=== PATIENT | female | born 1965 | race Caucasian/White ===

== ENCOUNTER 2020-07-18 13:43 | Emergency (ER) | payer BC, OTHER ==
[~2020-07-18] VITALS: Ht 157.5 cm; Wt 81.6 kg
--- NOTE | 2020-07-18 13:52 | NUR ---
Dr Vega at bedside for MSE.
--- NOTE | 2020-07-18 14:08 | NUR ---
[facility] tech is at bedside.
[2020-07-18] MEDS ORDERED: PRED50TA PO (15:20)
[2020-07-18] MEDS ORDERED: HYDR-3972 PO (15:20)
[2020-07-18] MEDS ORDERED: IBUP-1957 PO (15:20)
[2020-07-18 15:37] VITALS: BP 120/82
--- NOTE | 2020-07-18 15:37 | NUR ---
Patient discharged to home in stable condition. Written and verbal after care instructions given. Patient verbalizes understanding of instructions. Stressed follow up or return to ER for worsening s/s.
== END 2020-07-18 15:38 | disposition home or self-care (01) ==
LOC: ER 13:43
DX: M65.272 Calcific tendinitis, left ankle and foot (principal); E05.00 Thyrotoxicosis with diffuse goiter without thyrotoxic crisis or storm; Z79.52 Long term (current) use of systemic steroids; I10 Essential (primary) hypertension; Z72.0 Tobacco use
CPT/HCPCS: 76881; A4663

== ENCOUNTER 2020-08-01 11:11 | Emergency (ER) | payer BC, OTHER ==
[~2020-08-01] VITALS: Ht 157.5 cm; Wt 81.6 kg
[~2020-08-01 11:11] MED LIST: IBUP-1957 PO; PRED50TA PO
[2020-08-01] MEDS ORDERED: OXYCODONE/APAP 5-325 MG TABLET PO ONE (11:30)
[2020-08-01] MEDS ORDERED: IBUPROFEN 800 MG TABLET PO ONE (11:30)
--- NOTE | 2020-08-01 11:30 | NUR ---
PATIENT WAS SEEN BY DR YUSUF. MEDS GIVEN ORDERED.
[2020-08-01] MEDS ORDERED: IBUPROFEN 800 MG TABLET ONE (11:39)
[2020-08-01] MEDS ORDERED: OXYCODONE/APAP 5-325 MG TABLET ONE (11:39)
--- NOTE | 2020-08-01 12:26 | NUR ---
PATIENT STATES PAIN HAS DIMINISHED
[2020-08-01] MEDS ORDERED: NALO4SPR NS (13:13)
[2020-08-01] MEDS ORDERED: OXYC1TAB12 PO (13:13)
[2020-08-01] MEDS ORDERED: IBUP-1957 PO (13:13)
--- NOTE | 2020-08-01 13:24 | NUR ---
DC, RX (INCLUDING ALL NARCOTIC PRECAUTIONS) AND FOLLOW UP INSRUCTIONS GIVEN AND EXPLAINED TO PATIENT WHO STATES SHE UNDERSTANDS ALL INSTRUCTIONS
== END 2020-08-01 13:26 | disposition home or self-care (01) ==
LOC: ER 11:11
DX: M77.32 Calcaneal spur, left foot (principal); D17.79 Benign lipomatous neoplasm of other sites; E05.00 Thyrotoxicosis with diffuse goiter without thyrotoxic crisis or storm; I10 Essential (primary) hypertension; Z72.0 Tobacco use
CPT/HCPCS: 73630; 76881; A4663

== ENCOUNTER 2020-08-27 08:27 | Inpatient (IN) | payer BC, OTHER ==
[~2020-08-27] VITALS: Ht 157.5 cm; Wt 90.3 kg
[~2020-08-27 08:27] MED LIST changes: +NALO4SPR NS; +OXYC1TAB12 PO
[2020-08-27] MEDS ORDERED: LORAZEPAM 1 MG TABLET ONE (08:54)
[2020-08-27] MEDS ORDERED: LORAZEPAM 0.5 MG TABLET PO ONE (09:00)
[2020-08-27 09:16] LABS: BASOPHILS # (AUTO) 0.1 K/uL (0.0-8.0); BASOPHILS % (AUTO) 0.9 % (0.0-2.0); EOSINOPHILS # (AUTO) 0.2 K/uL (0.0-0.7); EOSINOPHILS % (AUTO) 2.9 % (0.0-7.0); HEMATOCRIT 41.6 % (31.2-41.9); HEMOGLOBIN 14.6 g/dL (10.9-14.3); LYMPHOCYTES % (AUTO) 37.2 % (20.5-51.5); MEAN CORPUSCULAR HGB CONC 35 g/dL (32.3-35.6); MEAN CORPUSCULAR VOLUME 99.4 fL (75.5-95.3); MONOCYTES # (AUTO) 0.9 K/uL (2.0-10.0); MONOCYTES % (AUTO) 10.6 % (0.0-11.0); NEUTROPHILS % (AUTO) 48.4 % (38.5-71.5); PLATELET COUNT (AUTO) 229 K/uL (179-408); RED BLOOD CELL COUNT(AUTO) 4.18 MIL/uL (3.63-4.92); WHITE BLOOD COUNT (AUTO) 8.2 K/uL (3.8-11.8)
[2020-08-27 09:27] LABS: CREATININE 0.7 mg/dL (0.6-1.3)
[2020-08-27 09:34] LABS: POTASSIUM 3.8 mmol/L (3.5-5.1)
[2020-08-27] MEDS ORDERED: CLOP75TA15 PO (10:16)
[2020-08-27] MEDS ORDERED: GABA300C PO (10:16)
[2020-08-27] MEDS ORDERED: ALPR0.5T8 PO (10:16)
[2020-08-27] MEDS ORDERED: HYDROCHLOROTHIAZIDE (10:29)
[2020-08-27] MEDS ORDERED: HIGH CHOLESTEROL MED (10:29)
[2020-08-27] MEDS ORDERED: SYNTHROID (10:29)
[2020-08-27] MEDS ORDERED: BP MEDICATION (10:29)
[2020-08-27] MEDS ORDERED: ATOR40TA PO (10:35)
[2020-08-27] MEDS ORDERED: HYDR25TA4 PO (10:35)
[2020-08-27] MEDS ORDERED: VALS160T2 PO (10:35)
[2020-08-27] MEDS ORDERED: LEVO50TA8 PO (10:35)
[2020-08-27] MEDS ORDERED: OXYCODONE/APAP 5-325 MG TABLET PO PRN (11:15)
[2020-08-27] MEDS ORDERED: ALPRAZOLAM 0.5 MG TABLET PO PRN (11:15)
[2020-08-27 11:16] VITALS: BP 133/79
[2020-08-27] MEDS: LORAZEPAM 2 MG/1 ML VIAL IV PRN ×2 (12:22→20:00)
[2020-08-27] MEDS: OXYCODONE/APAP 5-325 MG TABLET PO PRN ×2 (12:22→17:44)
[2020-08-27] MEDS ORDERED: NICO-670 TD (13:26)
[2020-08-27 15:07] VITALS: BP 113/56
[2020-08-27 17:05] LABS: BILIRUBIN,DIRECT 0.1 mg/dL (0.0-0.2); BILIRUBIN,TOTAL 0.4 mg/dL (0.2-1.0); TOTAL PROTEIN, SERUM 7.4 g/dL (6.4-8.2)
[2020-08-27] MEDS: NICOTINE 14 MG/24HR PATCH TD SCH (17:43)
[2020-08-27] MEDS: GABAPENTIN 300 MG CAPSULE PO SCH (17:44)
[2020-08-27] MEDS: ATORVASTATIN 40 MG TABLET PO SCH ×3 (20:01→20:40)
[2020-08-27 20:18] VITALS: BP 131/65
[2020-08-28] VITALS (7 sets, daily range): BP systolic 92–151; BP diastolic 32–79
[2020-08-28] MEDS: LORAZEPAM 2 MG/1 ML VIAL IV PRN ×3 (04:32→18:40)
[2020-08-28] MEDS: OXYCODONE/APAP 5-325 MG TABLET PO PRN ×3 (04:33→20:50)
[2020-08-28] MEDS: GABAPENTIN 300 MG CAPSULE PO SCH ×3 (08:13→17:14)
[2020-08-28] MEDS: LEVOTHYROXINE SODIUM 50 MCG TABLET PO SCH (08:21)
[2020-08-28] MEDS: NICOTINE 14 MG/24HR PATCH TD SCH (08:22)
[2020-08-28] MEDS ORDERED: CLOPIDOGREL 75 MG TABLET PO SCH (09:00)
[2020-08-28] MEDS ORDERED: HYDROCHLOROTHIAZIDE 25 MG TABLET PO SCH (09:00)
[2020-08-28] MEDS ORDERED: VALSARTAN 160 MG TABLET PO SCH (09:00)
[2020-08-28] MEDS: FAMOTIDINE 20 MG TABLET PO SCH ×2 (11:51→20:50)
[2020-08-28] MEDS: METOPROLOL SUCCINATE XL 50 MG TAB.SR.24H PO SCH (11:52)
[2020-08-28] MEDS ORDERED: BENZOCAINE/MENTH/CETYLPYRD LOZENGE MM PRN (12:15)
[2020-08-28] MEDS ORDERED: RIVAROXABAN 10 MG TABLET PO SCH (18:00)
[2020-08-28] MEDS: ATORVASTATIN 40 MG TABLET PO SCH (20:50)
[2020-08-29] VITALS: BP 105/54
[2020-08-29] MEDS: LORAZEPAM 2 MG/1 ML VIAL IV PRN ×2 (00:47→08:24)
[2020-08-29 04:00] VITALS: BP 108/47
[2020-08-29] MEDS: LEVOTHYROXINE SODIUM 50 MCG TABLET PO SCH (06:02)
[2020-08-29] MEDS: OXYCODONE/APAP 5-325 MG TABLET PO PRN (06:05)
[2020-08-29] MEDS: NICOTINE 14 MG/24HR PATCH TD SCH (08:22)
[2020-08-29] MEDS: FAMOTIDINE 20 MG TABLET PO SCH (08:23)
[2020-08-29] MEDS: METOPROLOL SUCCINATE XL 50 MG TAB.SR.24H PO SCH (08:23)
[2020-08-29] MEDS ORDERED: ASPIRIN 81 MG TAB.CHEW PO SCH (09:00)
[2020-08-29] MEDS: GABAPENTIN 300 MG CAPSULE PO SCH (09:00)
[2020-08-29] MEDS ORDERED: MULTIVITAMINS,THERAPEUTIC TABLET PO SCH (09:00)
[2020-08-29] MEDS ORDERED: THIAMINE HCL 100 MG TABLET PO SCH (09:00)
[2020-08-29] MEDS ORDERED: FOLIC ACID 1 MG TABLET PO SCH (09:00)
[2020-08-29] MEDS ORDERED: VALSARTAN 160 MG TABLET PO SCH (09:00)
[2020-08-29] MEDS ORDERED: VALSARTAN 80 MG TABLET PO SCH (09:00)
[2020-08-29] MEDS ORDERED: VALS80TA2 PO (11:19)
[2020-08-29] MEDS ORDERED: METO-357 PO (11:19)
[2020-08-29] MEDS ORDERED: GABA300C PO (11:19)
[2020-08-29] MEDS ORDERED: FOLI1TAB94 PO (11:19)
[2020-08-29] MEDS ORDERED: HYDR-3980 PO (11:19)
[2020-08-29] MEDS ORDERED: THIA100T13 PO (11:19)
[2020-08-29] MEDS ORDERED: MULT-24 PO (11:19)
[2020-08-29] MEDS ORDERED: RIVA10TA PO (11:19)
[2020-08-29] MEDS ORDERED: ALPR0.5T8 PO (11:19)
[2020-08-29] MEDS ORDERED: FAMO20TA8 PO (11:19)
[2020-08-29] MEDS ORDERED: ASPI81TA31 PO (11:19)
[2020-08-29] MEDS ORDERED: NICO-671 TD (11:19)
[2020-08-29 11:32] VITALS: BP 145/59
== END 2020-08-29 13:10 | disposition home or self-care (01) | DRG 880 ==
LOC: ER 08:28 → TELE3 10:17
PROVIDERS: ADMIT Internal Medicine; ATTEND Internal Medicine
DX: F41.9 Anxiety disorder, unspecified (principal); F10.239 Alcohol dependence with withdrawal, unspecified; I25.2 Old myocardial infarction; Z95.5 Presence of coronary angioplasty implant and graft; E05.00 Thyrotoxicosis with diffuse goiter without thyrotoxic crisis or storm; F17.210 Nicotine dependence, cigarettes, uncomplicated; F32.9 Major depressive disorder, single episode, unspecified; G89.29 Other chronic pain; I10 Essential (primary) hypertension; I25.10 Atherosclerotic heart disease of native coronary artery without angina pectoris; M19.90 Unspecified osteoarthritis, unspecified site; I48.0 Paroxysmal atrial fibrillation; G62.9 Polyneuropathy, unspecified; Z90.49 Acquired absence of other specified parts of digestive tract; E66.9 Obesity, unspecified; Z68.36 Body mass index [BMI] 36.0-36.9, adult; Y90.9 Presence of alcohol in blood, level not specified; Z20.822 Contact with and (suspected) exposure to COVID-19
CPT/HCPCS: 36415; 70030-TC; 71045; 83690; 85025; A4663; G0378; J2060

== ENCOUNTER 2020-09-08 14:03 | Inpatient (IN) | payer BC, OTHER ==
[~2020-09-08] VITALS: Ht 157.5 cm; Wt 88.0 kg
[~2020-09-08 14:03] MED LIST changes: +ALPR0.5T8 PO; +ASPI81TA31 PO; +ATOR40TA PO; +CLOP75TA15 PO; +FAMO20TA8 PO; +FOLI1TAB94 PO; +GABA300C PO; +HYDR25TA4 PO; +LEVO50TA8 PO; +METO-357 PO; +MULT-24 PO; -NALO4SPR NS; +NICO-670 TD; +NICO-671 TD; -PRED50TA PO; +RIVA10TA PO; +THIA100T13 PO; +VALS160T2 PO; +VALS80TA2 PO
--- NOTE | 2020-09-08 14:17 | NUR ---
DR Sanchez at the bedside for MSE.
[2020-09-08] MEDS ORDERED: HYDROCODONE/APAP 5-325MG TABLET ONE (15:30)
[2020-09-08] MEDS ORDERED: HYDROCODONE/APAP 5-325MG TABLET PO ONE (15:30)
[2020-09-08] MEDS ORDERED: MORPHINE SULFATE 4 MG/1 ML DISP.SYRIN IV ONE (16:00)
[2020-09-08] MEDS ORDERED: ONDANSETRON 4 MG/2 ML VIAL IV ONE (16:00)
[2020-09-08] MEDS ORDERED: RIVAROXABAN 15 MG TABLET PO STA (16:12)
[2020-09-08] MEDS ORDERED: MORPHINE SULFATE 4 MG/1 ML DISP.SYRIN ONE (16:17)
[2020-09-08] MEDS ORDERED: ONDANSETRON 4 MG/2 ML VIAL ONE (16:17)
[2020-09-08 16:34] LABS: BASOPHILS # (AUTO) 0.1 K/uL (0.0-8.0); EOSINOPHILS # (AUTO) 0.3 K/uL (0.0-0.7); EOSINOPHILS % (AUTO) 3.8 % (0.0-7.0); HEMATOCRIT 39.2 % (31.2-41.9); HEMOGLOBIN 13.7 g/dL (10.9-14.3); LYMPHOCYTES # (AUTO) 3.4 K/uL (20.0-40.0); LYMPHOCYTES % (AUTO) 43.1 % (20.5-51.5); MEAN CORPUSCULAR HEMOGLOBIN 34.9 uug (24.7-32.8); MEAN CORPUSCULAR HGB CONC 35 g/dL (32.3-35.6); MEAN CORPUSCULAR VOLUME 99.7 fL (75.5-95.3); MONOCYTES # (AUTO) 0.7 K/uL (2.0-10.0); MONOCYTES % (AUTO) 8.9 % (0.0-11.0); NEUTROPHILS # (AUTO) 3.4 K/uL (1.8-8.9); NEUTROPHILS % (AUTO) 43.2 % (38.5-71.5); PLATELET COUNT (AUTO) 230 K/uL (179-408); RED BLOOD CELL COUNT(AUTO) 3.93 MIL/uL (3.63-4.92); WHITE BLOOD COUNT (AUTO) 7.9 K/uL (3.8-11.8)
[2020-09-08 16:42] LABS: CREATININE 0.7 mg/dL (0.6-1.3); POTASSIUM 3.5 mmol/L (3.5-5.1)
[2020-09-08] MEDS ORDERED: RIVAROXABAN 15 MG TABLET ONE (16:44)
[2020-09-08 16:48] LABS: BILIRUBIN,DIRECT 0.1 mg/dL (0.0-0.2); BILIRUBIN,TOTAL 0.3 mg/dL (0.2-1.0); TOTAL PROTEIN, SERUM 7.7 g/dL (6.4-8.2)
[2020-09-08] MEDS ORDERED: Z GUARD REMEDY PASTE 57 GM TUBE TOP PRN (17:00)
[2020-09-08] MEDS ORDERED: MAGNESIUM HYDROXIDE 30 ML LIQUID UDC PO PRN (17:00)
[2020-09-08] MEDS ORDERED: ACETAMINOPHEN 325 MG TABLET PO PRN (17:00)
[2020-09-08] MEDS ORDERED: ONDANSETRON 4 MG/2 ML VIAL IV PRN (17:00)
[2020-09-08] MEDS ORDERED: HYDROMORPHONE 1 MG/1 ML DISP.SYRIN IV ONE (17:15)
--- NOTE | 2020-09-08 19:33 | NUR ---
RECEIVED PT FROM ER VIA WHEELCHAIR. UNDER THE CARE OF DR. LOERA. DX:UPPER EXTREMITY DVT. PT IN NO ACUTE DISTRESS. BELONGING LIST DONE. ADMISSION PROCESS AND CARE PLAN INITIATED.FDC ASSESSMENT DONE. SAFETY AND COMFORT PROVIDED. WILL CONTINUE TO MONITOR.
--- NOTE | 2020-09-08 19:58 | NUR ---
CALLED DR. LOERA FOR PT IS STILL COMPLAINING OF PAIN UNRELIEVED OF NORCO THAT WAS GIVEN ON . DR. LOERA ORDERED MORPHINE 2MG Q4HPRN IV.
[2020-09-08 20:09] VITALS: BP 103/49
[2020-09-08] MEDS: HYDROCODONE/APAP 5-325MG TABLET PO PRN (20:10)
--- NOTE | 2020-09-08 22:39 | NUR ---
DR. LOERA ORDERED XARELTO 15MG BID .
[2020-09-08] MEDS: MORPHINE SULFATE 2 MG/1 ML DISP.SYRIN IV PRN (22:50)
[2020-09-09 04:09] VITALS: BP 143/62
[2020-09-09] MEDS: MORPHINE SULFATE 2 MG/1 ML DISP.SYRIN IV PRN ×4 (04:19→18:18)
[2020-09-09] MEDS: LEVOTHYROXINE SODIUM 50 MCG TABLET PO SCH (06:02)
[2020-09-09] MEDS: HYDROCODONE/APAP 5-325MG TABLET PO PRN ×2 (06:23→20:20)
--- NOTE | 2020-09-09 06:36 | NUR ---
PT SLEPT INTERMITTENTLY. PRESCRIBED MEDICATION GIVEN AND PT TOLRERATED IT WELL. PT GIVEN MORPHINE PRN AT 2250HAND 0419H. PT TOLERATED IT WELL. PT WAS GIVEN NORCO PRN AT 0623H FOR PAIN IS NOT RELIEVED BY MORPHINE. PT VITAL SIGNS STABLE. SAFETY AND COMFORT PROVIDED. WILL ENDORTDSRE TO INCOMING NURSE FOR CONTINUITY OF CARE.
[2020-09-09 06:38] LABS: BASOPHILS % (AUTO) 0.7 % (0.0-2.0); EOSINOPHILS # (AUTO) 0.3 K/uL (0.0-0.7); EOSINOPHILS % (AUTO) 4.7 % (0.0-7.0); HEMATOCRIT 38.2 % (31.2-41.9); HEMOGLOBIN 13.3 g/dL (10.9-14.3); LYMPHOCYTES # (AUTO) 2.7 K/uL (20.0-40.0); LYMPHOCYTES % (AUTO) 37.9 % (20.5-51.5); MEAN CORPUSCULAR HEMOGLOBIN 34.9 uug (24.7-32.8); MEAN CORPUSCULAR HGB CONC 35 g/dL (32.3-35.6); MEAN CORPUSCULAR VOLUME 100.3 fL (75.5-95.3); MONOCYTES # (AUTO) 0.7 K/uL (2.0-10.0); MONOCYTES % (AUTO) 10.1 % (0.0-11.0); NEUTROPHILS # (AUTO) 3.3 K/uL (1.8-8.9); NEUTROPHILS % (AUTO) 46.6 % (38.5-71.5); PLATELET COUNT (AUTO) 206 K/uL (179-408); RED BLOOD CELL COUNT(AUTO) 3.81 MIL/uL (3.63-4.92); WHITE BLOOD COUNT (AUTO) 7.2 K/uL (3.8-11.8)
[2020-09-09 06:57] LABS: BILIRUBIN,TOTAL 0.3 mg/dL (0.2-1.0); CREATININE 0.8 mg/dL (0.6-1.3); MAGNESIUM 2.1 mg/dL (1.8-2.4); PHOSPHOROUS 4.3 mg/dL (2.5-4.9); POTASSIUM 4.7 mmol/L (3.5-5.1); TOTAL PROTEIN, SERUM 7.2 g/dL (6.4-8.2)
--- NOTE | 2020-09-09 07:25 | NUR ---
Patient is awake, alert and oriented. Able to make needs known. In no acute distress. C/o of slight left arm pain. Pain medication was administered previous shift and she says it's a little better. Patient is comfortable. Call light in reach. Bed is low and locked. Will continue to monitor.
[2020-09-09] MEDS: GABAPENTIN 300 MG CAPSULE PO SCH ×3 (08:31→16:58)
[2020-09-09] MEDS: ASPIRIN 81 MG TAB.CHEW PO SCH (08:31)
[2020-09-09] MEDS: FAMOTIDINE 20 MG TABLET PO SCH ×2 (08:31→20:10)
[2020-09-09] MEDS: THIAMINE HCL 100 MG TABLET PO SCH (08:31)
[2020-09-09] MEDS: FOLIC ACID 1 MG TABLET PO SCH (08:31)
[2020-09-09] MEDS: METOPROLOL SUCCINATE XL 50 MG TAB.SR.24H PO SCH (08:32)
[2020-09-09] MEDS: RIVAROXABAN 15 MG TABLET PO SCH ×2 (08:33→16:58)
[2020-09-09] MEDS: NICOTINE 14 MG/24HR PATCH TD SCH (08:34)
[2020-09-09] MEDS ORDERED: VALSARTAN 160 MG TABLET PO SCH (09:00)
[2020-09-09] MEDS ORDERED: HYDROCHLOROTHIAZIDE 25 MG TABLET PO SCH (09:00)
[2020-09-09] MEDS ORDERED: NICOTINE 7 MG/24HR PATCH TD SCH (09:00)
[2020-09-09 11:45] VITALS: BP 130/65
[2020-09-09 16:00] VITALS: BP 131/55
[2020-09-09 16:52] VITALS: BP 140/56
--- NOTE | 2020-09-09 17:30 | NUR ---
Paged Dr. Olivarez that patient wants to talk to him regarding ct scan on ue done this morning and wants to take MOM now instead. Waiting for call back.
--- NOTE | 2020-09-09 18:17 | NUR ---
Received call back from Dr. Juanis yi said ok to take MOM now. Re: CT scan he said to tell pt that there's nothing new/concerning and will talk more about it tomorrow. Patient is made aware and said ok.
[2020-09-09] MEDS ORDERED: VALS80TA31 PO (18:54)
--- NOTE | 2020-09-09 19:04 | NUR ---
Patient is alert and oriented. Pain medication given and she verbalized relief. Able to make minimal movements on left arm. Patient anxious about ct scan result, relayed Dr. Olivarez's message. Due meds given and tolerated. Needs attended. Safety measures place. Kept comfortable.
--- NOTE | 2020-09-09 19:30 | NUR ---
RECEIVED PT AWAKE, ALERT AND ORIENTEDX4. PT IN NO ACUTE DISTRESS. IV INTACT. PT COMPLAINING PAIN ON HER LEFT UPPER ARM. SAFETY AND COMFORT PROVIDED. WILL CONTINUE TO MONITOR.
[2020-09-09 20:06] VITALS: BP 118/51
[2020-09-09] MEDS ORDERED: ATORVASTATIN 40 MG TABLET PO SCH (21:00)
[2020-09-10] MEDS: MORPHINE SULFATE 2 MG/1 ML DISP.SYRIN IV PRN ×4 (00:39→13:22)
[2020-09-10 04:12] VITALS: BP 129/69
[2020-09-10] MEDS: LEVOTHYROXINE SODIUM 50 MCG TABLET PO SCH (06:07)
--- NOTE | 2020-09-10 06:16 | NUR ---
PT SLEPT INTERMITTENTLY. PT IN NO ACUTE DISTRESS. IV INTACT. PRESCRIBED MEDICATION GIVEN AND PT TOLERATED IT WELL. NORCO GIVEN AT 2020H FOR BREAKTHROUGH PAIN. AT 0039H MORPHINE WAS GIVEN FOR LEFT ARM PAIN. PT TOLERATED IT WELL. PT GIVEN MORPHINE AT 0511H FOR PAIN. PT STABLE.SAFETY AND COMFORT PROVIDED. WILL ENDORSE TO INCOMING NURSE FOR CONTINUITY OF CARE.
--- NOTE | 2020-09-10 08:00 | NUR ---
Discussed side effect of bleeding of xeralto. Pt denies any hematuria. However pt stated that her gums bleed during brushing her teeth last night for a "few seconds". (5secs) Instructed pt to monitor and let nursing know if continous and persistent bleeding is noted on her gums. Educated pt on proper pain management. Ice pack applied on left should/arm area - where her pain is persistent. Pt verbalized understanding.
[2020-09-10] MEDS: ASPIRIN 81 MG TAB.CHEW PO SCH (08:47)
[2020-09-10] MEDS: METOPROLOL SUCCINATE XL 50 MG TAB.SR.24H PO SCH (08:51)
[2020-09-10] MEDS: FOLIC ACID 1 MG TABLET PO SCH (08:52)
[2020-09-10] MEDS: FAMOTIDINE 20 MG TABLET PO SCH (08:52)
[2020-09-10] MEDS: THIAMINE HCL 100 MG TABLET PO SCH (08:52)
[2020-09-10] MEDS: GABAPENTIN 300 MG CAPSULE PO SCH ×3 (08:52→17:07)
[2020-09-10] MEDS: RIVAROXABAN 15 MG TABLET PO SCH ×2 (08:53→17:08)
[2020-09-10] MEDS: NICOTINE 14 MG/24HR PATCH TD SCH (08:55)
[2020-09-10] MEDS ORDERED: VALSARTAN 80 MG TABLET PO SCH (09:00)
[2020-09-10 11:37] VITALS: BP 116/49
--- NOTE | 2020-09-10 12:00 | NUR ---
pt stated "Ice was somewhat effective." pt still preffered MORPHINE for pain management.
[2020-09-10 15:10] VITALS: BP 121/60
[2020-09-10] MEDS ORDERED: ASPI-618 PO (17:41)
[2020-09-10] MEDS ORDERED: RIVA15TA PO (17:41)
[2020-09-10] MEDS ORDERED: HYDR-3972 PO (17:41)
[2020-09-10] MEDS ORDERED: RIVA20TA PO (17:41)
--- NOTE | 2020-09-10 18:54 | NUR ---
Pt cleared to be discharge home per DR Torres. Prescription sent electronically. Discharge instruction given. Reinforce education on new meds re changes ie Asa to EC ASA and Xarelto 15mg bid for 20 days till (09/30/20) then xarelto 20 mg daily. Pt verbalized understanding of medication changes. Pt is in no acute distress. Belongings given back to pt. Her medication from pharmacy was given back as well. Pt ambulates with great balance. Pt to f/u and establish PMD care on the september 23 with her new Cardiology appointment set up already.
== END 2020-09-10 18:55 | disposition home or self-care (01) | DRG 300 ==
LOC: ER 14:10 → TELE3 19:20 → MEDSURG3 21:10
PROVIDERS: ADMIT Internal Medicine; ATTEND Internal Medicine
DX: I82.622 Acute embolism and thrombosis of deep veins of left upper extremity (principal); D68.59 Other primary thrombophilia; I48.0 Paroxysmal atrial fibrillation; E66.01 Morbid (severe) obesity due to excess calories; Z68.35 Body mass index [BMI] 35.0-35.9, adult; F41.9 Anxiety disorder, unspecified; I10 Essential (primary) hypertension; I25.10 Atherosclerotic heart disease of native coronary artery without angina pectoris; Z20.822 Contact with and (suspected) exposure to COVID-19; E05.00 Thyrotoxicosis with diffuse goiter without thyrotoxic crisis or storm; Z79.01 Long term (current) use of anticoagulants; I25.2 Old myocardial infarction; I82.612 Acute embolism and thrombosis of superficial veins of left upper extremity; Z95.5 Presence of coronary angioplasty implant and graft; I80.9 Phlebitis and thrombophlebitis of unspecified site; F10.21 Alcohol dependence, in remission; M65.9 Synovitis and tenosynovitis, unspecified; F17.210 Nicotine dependence, cigarettes, uncomplicated; F32.9 Major depressive disorder, single episode, unspecified; G62.9 Polyneuropathy, unspecified; G89.29 Other chronic pain; M19.90 Unspecified osteoarthritis, unspecified site
CPT/HCPCS: 36415; 71045; 73200; 83735; 84100; 85025; 85305; 85730; 93005; A4663; G0378; J1170; J2270; J2405

== ENCOUNTER 2020-09-15 16:43 | Emergency (ER) | payer BC, OTHER ==
[~2020-09-15] VITALS: Ht 157.5 cm; Wt 81.6 kg
[~2020-09-15 16:43] MED LIST changes: -ALPR0.5T8 PO; +ASPI-618 PO; -ASPI81TA31 PO; -CLOP75TA15 PO; -FOLI1TAB94 PO; +HYDR-3972 PO; -HYDR25TA4 PO; -IBUP-1957 PO; -MULT-24 PO; -NICO-670 TD; -OXYC1TAB12 PO; -RIVA10TA PO; +RIVA15TA PO; +RIVA20TA PO; -THIA100T13 PO; -VALS160T2 PO; -VALS80TA2 PO; +VALS80TA31 PO
--- NOTE | 2020-09-15 17:24 | NUR ---
Dr Álvarez at the bedside for MSE.
[2020-09-15] MEDS ORDERED: OXYC-128 PO (18:27)
[2020-09-15 18:53] VITALS: BP 121/77
== END 2020-09-15 18:54 | disposition home or self-care (01) ==
LOC: ER 16:43
DX: M25.512 Pain in left shoulder (principal); M75.32 Calcific tendinitis of left shoulder; F17.200 Nicotine dependence, unspecified, uncomplicated; I25.2 Old myocardial infarction; I48.0 Paroxysmal atrial fibrillation; Z79.01 Long term (current) use of anticoagulants; Z95.5 Presence of coronary angioplasty implant and graft; I25.10 Atherosclerotic heart disease of native coronary artery without angina pectoris; E05.00 Thyrotoxicosis with diffuse goiter without thyrotoxic crisis or storm; Z79.890 Hormone replacement therapy; Z79.82 Long term (current) use of aspirin; Z79.899 Other long term (current) drug therapy
CPT/HCPCS: 73030; A4663

== ENCOUNTER 2020-09-18 02:37 | Emergency (ER) | payer BC, OTHER ==
[~2020-09-18] VITALS: Ht 157.5 cm; Wt 86.2 kg
[~2020-09-18 02:37] MED LIST changes: +OXYC-128 PO
[2020-09-18] MEDS ORDERED: KETOROLAC TROMETHAMINE 60 MG INJ IM ONE ×2 (02:45→02:53)
[2020-09-18] MEDS ORDERED: ONDANSETRON ODT 4 MG TAB.RAPDIS SL ONE (02:45)
[2020-09-18] MEDS ORDERED: HYDROMORPHONE 1 MG/1 ML DISP.SYRIN IM ONE (02:45)
[2020-09-18] MEDS ORDERED: HYDROMORPHONE 2 MG/1 ML DISP.SYRIN ONE (02:53)
[2020-09-18] MEDS ORDERED: ONDANSETRON ODT 4 MG TAB.RAPDIS ONE (02:53)
[2020-09-18] MEDS ORDERED: HYDROMORPHONE 1 MG/1 ML DISP.SYRIN ONE (02:54)
[2020-09-18] MEDS ORDERED: ONDA4TAB5 GT (03:23)
[2020-09-18] MEDS ORDERED: HYDR4TAB4 PO (03:23)
[2020-09-18] MEDS ORDERED: NAPR-1164 PO (03:23)
[2020-09-18 03:33] VITALS: BP 148/86
== END 2020-09-18 03:51 | disposition home or self-care (01) ==
LOC: ER 02:40
DX: M75.32 Calcific tendinitis of left shoulder (principal); F17.200 Nicotine dependence, unspecified, uncomplicated; I48.0 Paroxysmal atrial fibrillation; Z79.01 Long term (current) use of anticoagulants; I25.2 Old myocardial infarction; I25.10 Atherosclerotic heart disease of native coronary artery without angina pectoris; Z95.5 Presence of coronary angioplasty implant and graft; E05.00 Thyrotoxicosis with diffuse goiter without thyrotoxic crisis or storm; Z86.718 Personal history of other venous thrombosis and embolism; G62.9 Polyneuropathy, unspecified; Z79.899 Other long term (current) drug therapy
CPT/HCPCS: A4663; J1170; J1885; Q0162

== ENCOUNTER 2020-10-08 09:14 | Emergency (ER) | payer BC, OTHER ==
[~2020-10-08] VITALS: Ht 157.5 cm; Wt 86.2 kg
[~2020-10-08 09:14] MED LIST changes: +HYDR4TAB4 PO; +NAPR-1164 PO; +ONDA4TAB5 GT
== END 2020-10-08 10:17 | disposition home or self-care (01) ==
LOC: ER 09:14
DX: M79.605 Pain in left leg (principal); I25.2 Old myocardial infarction; I25.10 Atherosclerotic heart disease of native coronary artery without angina pectoris; Z95.5 Presence of coronary angioplasty implant and graft; F17.200 Nicotine dependence, unspecified, uncomplicated; Z86.718 Personal history of other venous thrombosis and embolism; Z79.01 Long term (current) use of anticoagulants; I48.0 Paroxysmal atrial fibrillation; E05.00 Thyrotoxicosis with diffuse goiter without thyrotoxic crisis or storm; Z79.890 Hormone replacement therapy; Z79.899 Other long term (current) drug therapy
CPT/HCPCS: A4663

== ENCOUNTER 2020-10-29 08:12 | Emergency (ER) | payer BC, OTHER ==
[~2020-10-29] VITALS: Ht 157.5 cm; Wt 86.2 kg
--- NOTE | 2020-10-29 08:12 | NUR ---
Patient is AOx4, and an employee of [employer]), c/o nasal congestion with runny nose for about 3 days. Patient said that "It feels like my allergies." Patient also wants COVID test now and she went to [facility] prior to coming to ER today. She was instructed by the employee health nurse to go to our ER department for the COVID test since Employee [facility] does not do COVID swabs anymore since October.
--- NOTE | 2020-10-29 08:31 | NUR ---
Patient is resting comfortably on gurney with eyes closed, NAD, pending MD evaluation
--- NOTE | 2020-10-29 09:23 | NUR ---
Patient discharged in stable condition with brisk steady gait. Verbal after care instructions given. Patient verbalized understanding & compliance of instructions. Stressed follow up with her primary doctor and to STOP SMOKING or return to ER for worsening s/s.
== END 2020-10-29 09:23 | disposition home or self-care (01) ==
LOC: ER 08:12
DX: R09.89 Other specified symptoms and signs involving the circulatory and respiratory systems (principal); Z20.822 Contact with and (suspected) exposure to COVID-19; F17.200 Nicotine dependence, unspecified, uncomplicated; I25.2 Old myocardial infarction; I25.10 Atherosclerotic heart disease of native coronary artery without angina pectoris; Z95.5 Presence of coronary angioplasty implant and graft; I48.0 Paroxysmal atrial fibrillation; Z79.01 Long term (current) use of anticoagulants; E05.00 Thyrotoxicosis with diffuse goiter without thyrotoxic crisis or storm; Z86.718 Personal history of other venous thrombosis and embolism; Z79.890 Hormone replacement therapy
CPT/HCPCS: 87426; 99283; U0003; A4663

== ENCOUNTER 2020-11-22 15:49 | Outpatient (CLI) | payer BC, OTHER | END 2020-11-22 23:59 | disposition home or self-care (01) | LOC: US 15:49 | PROVIDERS: ATTEND Obstetrics & Gynecology | DX: R10.2 Pelvic and perineal pain (principal) | CPT/HCPCS: 76856 ==

== ENCOUNTER 2020-11-26 08:27 | Emergency (ER) | payer BC, OTHER ==
[~2020-11-26] VITALS: Ht 157.5 cm; Wt 86.2 kg
--- NOTE | 2020-11-26 08:30 | NUR ---
Dr Sanchez seen and examined the pt.
[2020-11-26] MEDS ORDERED: LORAZEPAM 0.5 MG TABLET ONE (08:43)
[2020-11-26] MEDS ORDERED: LORAZEPAM 2 MG/1 ML VIAL IM ONE (08:45)
[2020-11-26] MEDS ORDERED: LORAZEPAM 0.5 MG TABLET PO ONE (08:45)
[2020-11-26] MEDS ORDERED: LORAZEPAM 2 MG/1 ML VIAL ONE (08:53)
--- NOTE | 2020-11-26 09:10 | NUR ---
Patient is resting comfortably in bed with eyes closed, NAD noted.
--- NOTE | 2020-11-26 09:49 | NUR ---
Pt states feeling better and wishes to be discharge.
[2020-11-26 09:50] VITALS: BP 139/77
[2020-11-26 10:13] LABS: HEMATOCRIT 42.8 % (31.2-41.9); MEAN CORPUSCULAR HEMOGLOBIN 34.9 uug (24.7-32.8); MEAN CORPUSCULAR VOLUME 101.1 fL (75.5-95.3); PLATELET COUNT (AUTO) 210 K/uL (179-408)
[2020-11-26 10:19] LABS: CREATININE 0.8 mg/dL (0.6-1.3); POTASSIUM 4.1 mmol/L (3.5-5.1)
[2020-11-26 10:25] LABS: BILIRUBIN,DIRECT 0.1 mg/dL (0.0-0.2); BILIRUBIN,TOTAL 0.4 mg/dL (0.2-1.0); TOTAL PROTEIN, SERUM 7.8 g/dL (6.4-8.2)
[2020-11-26] MEDS ORDERED: CLON0.5T4 PO (11:01)
== END 2020-11-26 11:07 | disposition home or self-care (01) ==
LOC: ER 08:27
DX: F41.0 Panic disorder [episodic paroxysmal anxiety] (principal); R94.6 Abnormal results of thyroid function studies; E05.00 Thyrotoxicosis with diffuse goiter without thyrotoxic crisis or storm; F17.200 Nicotine dependence, unspecified, uncomplicated; I25.2 Old myocardial infarction; Z86.718 Personal history of other venous thrombosis and embolism; Z79.01 Long term (current) use of anticoagulants; Z95.5 Presence of coronary angioplasty implant and graft; I25.10 Atherosclerotic heart disease of native coronary artery without angina pectoris; I48.91 Unspecified atrial fibrillation; G62.9 Polyneuropathy, unspecified; Z79.899 Other long term (current) drug therapy
CPT/HCPCS: 36415; 80048; 80076; 84443; 84484; 85025; 93005; 96372; 99284; J2060; 70030-TC; A4663

== ENCOUNTER 2020-12-05 14:25 | Emergency (ER) | payer BC, OTHER ==
[~2020-12-05] VITALS: Ht 157.5 cm; Wt 89.8 kg
[~2020-12-05 14:25] MED LIST changes: +CLON0.5T4 PO
[2020-12-05 14:39] LABS: *BILIRUBIN,URIN 2+ (NEGATIVE); *BLOOD, URINE 3+ (NEGATIVE); *CLARITY,URINE CLOUDY (CLEAR); *COLOR,URINE RED (YELLOW); *KETONES,URINE 1+ (NEGATIVE); LEUKOCYTE ESTERASE ,URINE 3+ (NEGATIVE); NITRITE, URINE POSITIVE (NEGATIVE); PH,URINE 5.5 (5.0-8.0); UGLUCOSE NEGATIVE (NEGATIVE)
[2020-12-05 15:15] LABS: HEMATOCRIT 43.9 % (31.2-41.9); MEAN CORPUSCULAR HEMOGLOBIN 33.7 uug (24.7-32.8); MEAN CORPUSCULAR VOLUME 100.8 fL (75.5-95.3); PLATELET COUNT (AUTO) 184 K/uL (179-408)
[2020-12-05 15:17] LABS: POTASSIUM 3.3 mmol/L (3.5-5.1)
[2020-12-05] MEDS ORDERED: NITR50CA PO (15:58)
[2020-12-05 16:06] LABS: RBC,URINE TNTC /HPF (0-3); WBC,URINE TNTC /HPF (0-3)
[2020-12-05 16:09] LABS: BACTERIA,URINE MODERATE /HPF (NONE SEEN); SQUAMOUS EPITHELIAL CELL,UR FEW /HPF (NONE SEEN)
== END 2020-12-05 16:27 | disposition home or self-care (01) ==
LOC: ER 14:25
DX: N30.01 Acute cystitis with hematuria (principal); B96.89 Other specified bacterial agents as the cause of diseases classified elsewhere; I25.2 Old myocardial infarction; Z95.5 Presence of coronary angioplasty implant and graft; I48.0 Paroxysmal atrial fibrillation; Z79.01 Long term (current) use of anticoagulants; Z86.718 Personal history of other venous thrombosis and embolism; E05.00 Thyrotoxicosis with diffuse goiter without thyrotoxic crisis or storm; G62.9 Polyneuropathy, unspecified; F17.200 Nicotine dependence, unspecified, uncomplicated; Z79.899 Other long term (current) drug therapy
CPT/HCPCS: 36415; 85025; 87077; 87086; A4663

== ENCOUNTER 2020-12-09 12:50 | Outpatient (CLI) | payer BC, OTHER ==
[~2020-12-09 12:50] MED LIST changes: +NITR50CA PO
[2020-12-10 20:55] LABS: FOLLICLE STIMULATION HORMONE 28.7; LUTEINIZING HORMONE 20.9
[2020-12-10 20:56] LABS: ESTRADIOL <5.0
[2020-12-10 20:57] LABS: PROGESTERONE 0.1; PROLACTIN 4.2 Low
== END 2020-12-09 23:59 | disposition home or self-care (01) ==
LOC: LAB 12:50
PROVIDERS: ATTEND Internal Medicine
DX: E78.5 Hyperlipidemia, unspecified (principal)
CPT/HCPCS: 36415; 82670; 83001; 83002; 84146; 84403; 84443; 84480